=== PATIENT | male | born 1970 | race Caucasian/White ===

== ENCOUNTER 2020-11-01 21:43 | Inpatient (IN) | payer SELFPAY ==
[~2020-11-01] VITALS: Ht 175.3 cm; Wt 81.8 kg
[2020-11-01 22:28] LABS: BASOPHILS 1.1 % (0-2); EOSINOPHILS 7.8 % (0-7); HEMATOCRIT 47.6 % (42.0-54.0); HEMOGLOBIN 16.6 g/dL (13.5-17.5); LYMPHOCYTES 42.2 % (15-50); MCH 33.6 pg (26.0-34.0); MCHC 34.9 g/dL (31.0-37.0); MCV 96.4 fL (80.0-100.0); MEAN PLATELET VOLUME 6.5 fL (7.4-10.4); MONOCYTES 9.7 % (2-11); NEUTROPHILS 39.2 % (40-80); RBC 4.94 10x6/uL (4.20-6.10); RDW 13.2 % (11.5-14.5); WBC 9.2 10x3/uL (4.8-10.8)
[2020-11-01 22:29] LABS: PLATELET COUNT 325 10x3/uL (130-400)
[2020-11-01 22:40] VITALS: BP 136/85
[2020-11-01 22:44] LABS: CALC OSMOLALITY 280 mosm/kg (275-300); CALCIUM 8.2 mg/dL (8.5-10.1); CARBON DIOXIDE 20.8 mmol/L (21.0-32.0); CHLORIDE - SERUM 106 mmol/L (98-107); CREATININE - SERUM 1.1 mg/dL (0.6-1.3); GLUCOSE 119 mg/dL (74-106); POTASSIUM - SERUM 3.9 mmol/L (3.5-5.1); SODIUM 140 mmol/L (136-145); UREA NITROGEN 15 mg/dL (7-18); eGFR NON AFRICAN AMERICAN 75 mL/min (90-120)
[2020-11-01 22:54] LABS: ALBUMIN 3.9 g/dL (3.4-5.0); ALKALINE PHOSPHATASE 99 U/L (30-120); ALT (SGPT) 102 U/L (10-68); BILIRUBIN - TOTAL 0.23 mg/dL (0.2-1.3); CKMB 1.3 U/L (0.0-3.6); CREATINE KINASE 117 UL (21-232); MAGNESIUM - SERUM 2.6 mg/dL (1.8-2.4); PROTEIN - SERUM 7.6 g/dL (6.4-8.2)
[2020-11-01 22:55] LABS: TROPONIN-I < 0.017 ng/mL (0.000-0.060)
[2020-11-01 23:00] VITALS: BP 126/89
[2020-11-02] VITALS (11 sets, daily range): BP systolic 103–122; BP diastolic 61–98; Ht 175.3 cm; Wt 81.8 kg
[2020-11-02 00:04] LABS: BILIRUBIN NEGATIVE (NEGATIVE); KETONE NEGATIVE mg/dL (< 1+); NITRITE NEGATIVE (NEGATIVE); PH 5.5 (5.0-8.0); UROBILINOGEN NORMAL mg/dL (< 2)
[2020-11-02 00:12] LABS: UDS - AMPHET NEGATIVE QUAL (NEGATIVE); UDS - BARB NEGATIVE QUAL (NEGATIVE); UDS - BENZO NEGATIVE QUAL (NEGATIVE); UDS - COCAINE NEGATIVE QUAL (NEGATIVE); UDS - OPIATE NEGATIVE QUAL (NEGATIVE); UDS - PCP NEGATIVE QUAL (NEGATIVE); UDS - THC NEGATIVE QUAL (NEGATIVE)
--- NOTE | 2020-11-02 09:00 | NUR ---
PT TO NUCLEAR MED SCAN WITH TECH VIA WHEELCHAIR.
--- NOTE | 2020-11-02 09:24 | NUR ---
PT RETURNED FROM SCAN AT THIS TIME.
[2020-11-02 10:09] LABS: BASOPHILS 1.2 % (0-2); EOSINOPHILS 8.5 % (0-7); HEMATOCRIT 45.6 % (42.0-54.0); HEMOGLOBIN 15.4 g/dL (13.5-17.5); LYMPHOCYTES 35.5 % (15-50); MCHC 33.9 g/dL (31.0-37.0); MCV 97.4 fL (80.0-100.0); MEAN PLATELET VOLUME 6.7 fL (7.4-10.4); MONOCYTES 10.9 % (2-11); NEUTROPHILS 43.9 % (40-80); PLATELET COUNT 268 10x3/uL (130-400); RBC 4.68 10x6/uL (4.20-6.10); RDW 13.1 % (11.5-14.5)
[2020-11-02 10:10] LABS: WBC 5.6 10x3/uL (4.8-10.8)
[2020-11-02 10:42] LABS: ALBUMIN 3.3 g/dL (3.4-5.0); ALKALINE PHOSPHATASE 71 U/L (30-120); ALT (SGPT) 100 U/L (10-68); BILIRUBIN - TOTAL 0.46 mg/dL (0.2-1.3); CALC OSMOLALITY 286 mosm/kg (275-300); CALCIUM 7.8 mg/dL (8.5-10.1); CARBON DIOXIDE 24.4 mmol/L (21.0-32.0); CHLORIDE - SERUM 110 mmol/L (98-107); CHOL - HDL RATIO 1.8 ratio (2.3-4.9); CHOLESTEROL, TOTAL 142 mg/dL (0-200); CKMB 1.7 U/L (0.0-3.6); CREATINE KINASE 84 UL (21-232); CREATININE - SERUM 0.8 mg/dL (0.6-1.3); GLUCOSE 110 mg/dL (74-106); HDL CHOLESTEROL 81 mg/dL (32-96); LDL CHOLESTEROL 42 mg/dL (0-100); LDL-HDL RATIO 0.5 ratio (1.5-3.5); MAGNESIUM - SERUM 2.5 mg/dL (1.8-2.4); PHOSPHOROUS 2.7 mg/dL (2.5-4.9); POTASSIUM - SERUM 4.3 mmol/L (3.5-5.1); SODIUM 143 mmol/L (136-145); TRIGLYCERIDE 95 mg/dL (30-200); TROPONIN-I < 0.017 ng/mL (0.000-0.060); UREA NITROGEN 15 mg/dL (7-18); eGFR NON AFRICAN AMERICAN > 90 mL/min (90-120)
--- NOTE | 2020-11-02 13:26 | NUR ---
RECEIVED PT TO ROOM 2114, PT VERY ANXIOUS, ASKING FOR SOMETHING FOR IT. GAVE 1MG OF ATIVAN AT THIS TIME. ORIENTED PT TO ROOM AND CALL LIGHT, WAS FIXING TO PLACE HEART MONITOR ON PT AND PT WANTS TO GET IN THE SHOWER FIRST, INFORMED PT AND PT'S THAT HE NEEDS TO BE CARERFUL AND USE THE SHOWER CHAIR BECAUSE THE ATIVAN MIGHT MAKE HIM A LITTLE DROWSY. BOTH VERBALIZED UNDERSTANDING. WILL START PLAN OF CARE.
--- NOTE | 2020-11-02 14:19 | NUR ---
WENT TO PLACE PT'S TELEMETRY ON, AND PT IS SLEEPING, SPOUSE REFUSED FOR THIS NURSE TO PUT HIS TELEMERY ON. STATED, " I DON'T WANT HIM TO GET ANXIOUS AGAIN".
[2020-11-02] MEDS ORDERED: NICODERM CQ1 EAC3 TRANSDERM (16:24)
[2020-11-02] MEDS ORDERED: PROTONIX40 MG PO (16:24)
--- NOTE | 2020-11-02 16:49 | NUR ---
PROVIDED VERBAL AND WRITTEN DISCHARGE TEACHING TO PT, WHO VERBALIZED UNDERSTANDING. D/C RT FA IV WITH CATHETER TIP INTACT. HEART MONITOR REMOVED AND TAKEN TO [facility] SCIENT[facility]. PT REFUSED WHEELCHIAR, LEFT UNIT VIA AMBULATORY WITH ALL BELONGINGS. NAD NOTED.
--- NOTE | 2020-11-03 17:51 | MORECARE ---
CASE MANAGEMENT DISCHARGE SUMMARY PATIENT: CHAD WISE UNIT: [id number] ADM DATE: 11/02/20 AGE: 50 : 66 SEX: M ROOM/BED: [facility] AUTHOR: MARKY,DOC PHYSICIAN: REFERRING PHYSICIAN: JANKI KWONG MD DATE OF SERVICE: 11/03/20 Case Management Discharge Planning Summary DCP REVIEW SUMMARY ANTICIPATED D/C DATE: EXPECTED LOS : CASE STATUS: DCP Complete INITIAL REVIEW: 11/02/2020 INITIAL REVIEWER: Shirley Aguirre FINAL DISCHARGE DISPOSITION: : FINAL REVIEWER: FINAL REVIEW DATE: DCP [employer] Questions [employer] QUESTION: ANSWER : PATIENT: CHAD WISE ENCOUNTER: [id number] MEDICAL RECORD#: [id number] ADMISSION DATE: 11/02/2020 DISCHARGE DATE: 11/02/2020 ATTENDING MD: JANKI BOURGEOIS : AGE: 50 MARITAL STATUS: M DC PLAN ID: [id number] FACILITY: [facility] PRINTED ON: 11/03/20 17:51 CT All edits/amendments must be made on the electronic document DICTATION DATE: 11/03/201750 TEAM DRIVER: KEVIN 11/03/201750 RPT#: [id number] DC DATE:11/02/20 STATUS: DIS IN [facility] [address] [place] [address] END OF REPORT
[2020-11-05 10:11] LABS: HEPATITIS C ANTIBODY >11.0 (0.0-0.9)
== END 2020-11-02 17:22 | disposition home or self-care (01) | DRG 311 ==
LOC: D.ER 21:43 → D.EDHOLD 11-02 01:40 → D.M2 11-02 13:21
PROVIDERS: Emergency Medicine; ADMIT Emergency Medicine; ATTEND Emergency Medicine
DX: I20.0 Unstable angina (principal); F41.9 Anxiety disorder, unspecified; F15.90 Other stimulant use, unspecified, uncomplicated; F10.20 Alcohol dependence, uncomplicated; Z72.0 Tobacco use